=== PATIENT | female | born 1995 | race Caucasian/White ===

== ENCOUNTER 2018-09-27 13:08 | Day surgery (SDC) | payer OTHER ==
[2018-09-27] MEDS ORDERED: PROPOFOL 20 ML ×2 (14:07→17:40)
[2018-09-27] MEDS ORDERED: MIDAZOLAM 1 MG/ML 2 ML INJ (14:07)
[2018-09-27] MEDS ORDERED: CEFAZOLIN 1 GM INJ (14:07)
[2018-09-27] MEDS ORDERED: FENTAnyl 50 MCG/ML VIAL ×2 (14:08→15:57)
[2018-09-27] MEDS ORDERED: ROPIVACAINE 0.5 % 30 ML VIAL ×2 (14:08→15:18)
[2018-09-27] MEDS ORDERED: BACITRACIN/POLYMYXIN 28.35 GM OINT TOP (15:18)
[2018-09-27] MEDS ORDERED: EPHEDrine SULFATE 50 MG/5 ML SYG IV (15:30)
[2018-09-27] MEDS ORDERED: FENTAnyl 50 MCG/ML VIAL IV ×3 (15:30)
[2018-09-27] MEDS ORDERED: OXYCODONE/ACETAMINOPHEN (5/325) TAB PO ×2 (15:30)
[2018-09-27] MEDS ORDERED: MEPERIDINE 25 MG INJ IV (15:30)
[2018-09-27] MEDS ORDERED: HYDROmorphONE 1 MG/5 ML IV SYRINGE IV ×3 (15:30)
[2018-09-27] MEDS ORDERED: ONDANSETRON 4 MG INJ IV (15:30)
[2018-09-27] MEDS ORDERED: DIPHENHYDRAMINE 50 MG INJ IV (15:30)
[2018-09-27] MEDS ORDERED: METOCLOPRAMIDE 10 MG INJ IV (15:30)
[2018-09-27] MEDS ORDERED: METOCLOPRAMIDE 10 MG INJ (16:09)
[2018-09-27] MEDS ORDERED: DEXAMETHASONE 4 MG/ML 1 ML INJ (16:09)
[2018-09-27] MEDS ORDERED: EPHEDrine SULFATE 50 MG/5 ML SYG (16:09)
[2018-09-27] MEDS ORDERED: ONDANSETRON 4 MG INJ (16:09)
[2018-09-27] MEDS: POLYMYXIN/BACITRACIN 1L IRRIG (16:12)
[2018-09-27] MEDS ORDERED: CA GLUCONATE (GM) 10% 10ML INJ (16:52)
[2018-09-27] MEDS ORDERED: THROMBIN 5000 UNIT VIAL (16:52)
[2018-09-27] MEDS ORDERED: MEPERIDINE /PF (100 MG/2 ML) AMPULE (17:39)
[2018-09-27] MEDS: CA CHLORIDE 10% 10 ML SYRINGE (17:47)
[2018-09-27] MEDS: THROMBIN 5000 UNIT VIAL TOP (17:49)
[2018-09-27] MEDS ORDERED: morphine 2 MG INJ IV (18:00)
== END 2018-09-27 19:20 | disposition home or self-care (01) ==
LOC: SDS 13:08
DX: S93.324A Dislocation of tarsometatarsal joint of right foot, initial encounter (principal); X58.XXXA Exposure to other specified factors, initial encounter
CPT/HCPCS: 28615; 73630; 82306